=== PATIENT | male | born 1960 | race Caucasian/White ===

== ENCOUNTER → 2016-10-04 | Outpatient (CLI) | payer OTHER ==
[2016-10-09 00:14] LABS: TESTOSTERONE %FREE+WEAKLY BOUN 15.4 % (9.0-46.0); TESTOSTERONE FREE+WEAKLY BOUND 70.2 ng/dL (40.0-250.0)
== END ==
LOC: M LAB 06:17
PROVIDERS: ATTEND Internal Medicine Endocrinology, Diabetes & Metabolism
DX: R53.83 Other fatigue (principal)

== ENCOUNTER → 2016-10-08 | Outpatient (REF) | payer OTHER ==
[2016-10-08 19:02] LABS: BASO % 0.7 % (0.0-1.0); EOS # 0.1 K/mm3 (0.0-0.50); EOS % 1.9 % (0.0-3.0); LARGE UNSTAINED CELL # 0.1 K/mm3 (0.0-0.4); LARGE UNSTAINED CELL % 1.5 % (0.0-4.0); LYMPH # 1.6 K/mm3 (1.5-4.5); LYMPH % 27.4 % (24.0-44.0); MEAN CORPUSCULAR HEMOGLOBIN 31.6 pg (27.0-33.0); MEAN CORPUSCULAR HGB CONC 34.2 g/dl (32.0-36.5); MEAN CORPUSCULAR VOLUME 92.6 fl (80.0-96.0); MONO # 0.3 K/mm3 (0.0-0.8); MONO % 4.8 % (0.0-5.0); NEUTROPHILS # 3.6 K/mm3 (1.8-7.7); NEUTROPHILS % 63.7 % (36.0-66.0); PLATELET COUNT, AUTOMATED 158 k/mm3 (150-450); RED CELL DISTRIBUTION WIDTH 13.2 % (11.5-14.5); WHITE BLOOD COUNT 5.7 K/mm3 (4.0-10.0)
[2016-10-08 19:26] LABS: ERYTHROCYTE SEDIMENTATION RATE 3 mm/hr (0-20)
[2016-10-08 20:19] LABS: ALBUMIN 4.5 GM/DL (3.2-5.2); ALBUMIN/GLOBULIN RATIO 1.88 (1.00-1.93); ALKALINE PHOSPHATASE 69 U/L (45-117); ALT/SGPT 60 U/L (12-78); ANION GAP 9 MEQ/L (8-16); AST/SGOT 36 U/L (15-37); BILIRUBIN,TOTAL 0.5 MG/DL (0.2-1.0); BLOOD UREA NITROGEN 17 MG/DL (7-18); CALCIUM LEVEL 8.9 MG/DL (8.5-10.1); CARBON DIOXIDE LEVEL 24 MEQ/L (21-32); CHLORIDE LEVEL 109 MEQ/L (98-107); CREATININE FOR GFR 0.93 MG/DL (0.70-1.30); GLOMERULAR FILTRATION RATE > 60.0 (>56); GLUCOSE, FASTING 85 MG/DL (70-105); POTASSIUM SERUM 3.7 MEQ/L (3.5-5.1); SODIUM LEVEL 142 MEQ/L (136-145); TOTAL PROTEIN 6.9 GM/DL (6.4-8.2); URIC ACID 5.4 MG/DL (3.5-7.2)
[2016-10-10 11:00] LABS: ALBUMIN 4.79 GM/DL (3.29-5.55); ALBUMIN % 69.4 % (55.8-66.1); GAMMA GLOBULIN % 8.7 % (11.1-18.8)
[2016-10-11 00:06] LABS: Lyme Disease IgG/IgM Antibodie <0.91 ISR (0.00-0.90); Lyme Disease IgM Ab Quantitati <0.80 index (0.00-0.79)
== END ==
LOC: M LABDRAW1 16:48
PROVIDERS: ATTEND Orthopaedic Surgery
DX: M47.896 Other spondylosis, lumbar region (principal)

== ENCOUNTER → 2016-10-16 | Outpatient (CLI) | payer OTHER | LOC: M LAB 06:03 | PROVIDERS: ATTEND Orthopaedic Surgery | DX: M47.896 Other spondylosis, lumbar region (principal) ==

== ENCOUNTER → 2017-07-25 | Outpatient (CLI) | payer OTHER ==
[2017-07-25 07:03] LABS: BASO % 0.9 % (0.0-1.0); EOS # 0.2 10^3/uL (0.0-0.50); EOS % 4.2 % (0.0-3.0); IMMATURE GRANULOCYTE % 0.2 % (0-0); LYMPH # 1.6 10^3/uL (1.5-4.5); LYMPH % 37.8 % (24.0-44.0); MEAN CORPUSCULAR HEMOGLOBIN 31.1 pg (27.0-33.0); MONO # 0.4 10^3/uL (0.0-0.8); MONO % 9.4 % (0.0-5.0); NEUTROPHILS % 47.5 % (36.0-66.0); PLATELET COUNT, AUTOMATED 126 10^3/uL (150-450); RED CELL DISTRIBUTION WIDTH 12.5 % (11.5-14.5); WHITE BLOOD COUNT 4.3 10^3/uL (4.0-10.0)
[2017-07-25 07:37] LABS: ALBUMIN 4.2 GM/DL (3.2-5.2); ALBUMIN/GLOBULIN RATIO 1.68 (1.00-1.93); ALKALINE PHOSPHATASE 70 U/L (45-117); ALT/SGPT 53 U/L (12-78); ANION GAP 6 MEQ/L (8-16); AST/SGOT 29 U/L (7-37); BILIRUBIN,TOTAL 0.7 MG/DL (0.2-1.0); BLOOD UREA NITROGEN 18 MG/DL (7-18); CALCIUM LEVEL 8.8 MG/DL (8.5-10.1); CARBON DIOXIDE LEVEL 28 MEQ/L (21-32); CHLORIDE LEVEL 108 MEQ/L (98-107); CHOLESTEROL LEVEL 170 MG/DL (<200); CREATININE FOR GFR 0.95 MG/DL (0.70-1.30); GLOMERULAR FILTRATION RATE > 60.0 (>56); GLUCOSE, FASTING 93 MG/DL (70-105); POTASSIUM SERUM 4.3 MEQ/L (3.5-5.1); SODIUM LEVEL 142 MEQ/L (136-145); TOTAL PROTEIN 6.7 GM/DL (6.4-8.2); TRIGLYCERIDES LEVEL 166 MG/DL (<150)
== END ==
LOC: M LAB 06:17
PROVIDERS: ATTEND Physician Assistant
DX: D64.9 Anemia, unspecified (principal); E78.2 Mixed hyperlipidemia; G47.30 Sleep apnea, unspecified; R35.1 Nocturia

== ENCOUNTER → 2017-07-25 | Outpatient (REF) | payer OTHER | LOC: M LAB REF 17:34 | PROVIDERS: ATTEND Physician Assistant | DX: R35.1 Nocturia (principal); D64.9 Anemia, unspecified ==

== ENCOUNTER 2018-03-12 08:45 | Day surgery (SDC) | payer OTHER ==
[2018-03-12] MEDS ORDERED: LIDOCAINE 2% INJ 100 MG/5 ML SDV (FOR ANES.) As Ordered (10:05)
[2018-03-12] MEDS ORDERED: PROPOFOL 200 MG/20 ML VIAL As Ordered (10:05)
[2018-03-12] MEDS ORDERED: HYDROCORTISONE 100 MG/2 ML VIAL (J1720) As Ordered (10:05)
[2018-03-12] MEDS: NS 1,000 ML IV (10:45)
== END 2018-03-12 11:10 | disposition home or self-care (01) ==
LOC: M OPP 08:45
DX: K64.2 Third degree hemorrhoids (principal); K62.5 Hemorrhage of anus and rectum; E78.00 Pure hypercholesterolemia, unspecified; G47.30 Sleep apnea, unspecified; M13.89 Other specified arthritis, multiple sites; Z79.899 Other long term (current) drug therapy; Z87.891 Personal history of nicotine dependence; Z80.0 Family history of malignant neoplasm of digestive organs; Z82.49 Family history of ischemic heart disease and other diseases of the circulatory system
CPT/HCPCS: 45378

== ENCOUNTER 2018-04-02 11:15 | Day surgery (SDC) | payer OTHER ==
[2018-04-02] MEDS ORDERED: ROPIvacaine 0.5% 30 ML INJECTION (J2795 PER 1MG) (11:16)
[2018-04-02] MEDS ORDERED: EPINEPHrine INJ 1 MG/ML 1ML AMP (11:16)
[2018-04-02] MEDS ORDERED: dexameTHASONE 10 MG/1 ML VIAL PRES.FREE (J1100) (11:16)
[2018-04-02] MEDS: LR 1,000 ML IV (12:08)
[2018-04-02] MEDS ORDERED: EPINEPHrine 1MG/ML INJ 30ML MD-VIAL As Ordered (12:59)
[2018-04-02] MEDS ORDERED: LIDOCAINE 1% SDV INJ 30 ML VIAL As Ordered (12:59)
[2018-04-02] MEDS ORDERED: LIDOCAINE 2% INJ 100 MG/5 ML SDV (FOR ANES.) As Ordered (13:01)
[2018-04-02] MEDS ORDERED: ROCURONIUM BROMIDE 50 MG/5 ML VIAL As Ordered (13:01)
[2018-04-02] MEDS ORDERED: PROPOFOL 200 MG/20 ML VIAL As Ordered (13:01)
[2018-04-02] MEDS ORDERED: fentaNYL 100 MCG/2 ML INJECTION (J3010) As Ordered ×3 (13:02→15:45)
[2018-04-02] MEDS ORDERED: MIDAZOLAM INJ 2 MG/2 ML VIAL (J2250) As Ordered (13:09)
[2018-04-02] MEDS: fentaNYL 100 MCG/2 ML INJECTION (J3010) IV (13:20)
[2018-04-02] MEDS: MIDAZOLAM INJ 2 MG/2 ML VIAL (J2250) IV (13:20)
[2018-04-02] MEDS ORDERED: dexameTHASONE 4 MG/ML 1ML VIAL (J1100) As Ordered (14:22)
[2018-04-02] MEDS ORDERED: GLYCOPYRROLATE INJ 0.2 MG/ML 2 ML VIAL As Ordered (14:30)
[2018-04-02] MEDS ORDERED: ePHEDrine SULFATE 25 MG/5 ML(5MG/ML) SYRINGE As Ordered (14:31)
[2018-04-02] MEDS: BUPIVACAINE HCL 0.25% 30 ML VIAL As Ordered (16:30)
[2018-04-02] MEDS ORDERED: fentaNYL 100 MCG/2 ML INJECTION (J3010) IV (17:15)
[2018-04-02] MEDS ORDERED: LR 1,000 ML IV ×2 (17:15)
[2018-04-02] MEDS: ONDANSETRON 4MG/2ML VIAL (J2405) IV (18:08)
== END 2018-04-02 20:00 | disposition home or self-care (01) ==
LOC: M SDC 11:15
DX: M75.21 Bicipital tendinitis, right shoulder (principal); M19.011 Primary osteoarthritis, right shoulder; M75.41 Impingement syndrome of right shoulder; E78.00 Pure hypercholesterolemia, unspecified; G47.33 Obstructive sleep apnea (adult) (pediatric); K64.9 Unspecified hemorrhoids; M48.00 Spinal stenosis, site unspecified; R06.83 Snoring; Z91.09 Other allergy status, other than to drugs and biological substances
CPT/HCPCS: 29822

== ENCOUNTER → 2019-05-13 | Outpatient (CLI) | payer OTHER ==
[~2019-05-13] MED LIST: ROSU40TA4 PO
[2019-05-13 07:12] LABS: BASO % 0.9 % (0.0-1.0); EOS # 0.2 10^3/uL (0.0-0.5); EOS % 3.4 % (0.0-3.0); HEMATOCRIT 41.3 % (42.0-52.0); HEMOGLOBIN 14.5 g/dl (13.5-17.5); LYMPH # 1.6 10^3/uL (1.5-5.0); LYMPH % 36.3 % (24.0-44.0); MEAN CORPUSCULAR HEMOGLOBIN 32.4 pg (27.0-33.0); MEAN CORPUSCULAR HGB CONC 35.1 g/dl (32.0-36.5); MEAN CORPUSCULAR VOLUME 92.2 fl (80.0-96.0); MONO # 0.3 10^3/uL (0.0-0.8); MONO % 7.1 % (0.0-5.0); NEUTROPHILS # 2.3 10^3/uL (1.5-8.5); NEUTROPHILS % 52.1 % (36.0-66.0); PLATELET COUNT, AUTOMATED 127 10^3/uL (150-450); RED BLOOD COUNT 4.48 10^6/uL (4.30-6.10); WHITE BLOOD COUNT 4.4 10^3/uL (4.0-10.0)
[2019-05-13 07:40] LABS: ALBUMIN 4.2 GM/DL (3.2-5.2); ALT/SGPT 62 U/L (12-78); BILIRUBIN,TOTAL 0.6 MG/DL (0.2-1.0); BLOOD UREA NITROGEN 16 MG/DL (7-18); CALCIUM LEVEL 8.6 MG/DL (8.5-10.1); CARBON DIOXIDE LEVEL 26 MEQ/L (21-32); CHLORIDE LEVEL 107 MEQ/L (98-107); CHOLESTEROL LEVEL 87 MG/DL (<200); CHOLESTEROL RISK RATIO 2.175 (<5); CREATININE FOR GFR 0.94 MG/DL (0.70-1.30); GLOMERULAR FILTRATION RATE > 60.0 (>56); GLUCOSE, FASTING 88 MG/DL (70-100); HDL CHOLESTEROL 40 MG/DL (>40); LDL CHOLESTEROL 19 MG/DL (<100); NON-HDL-C 47 MG/DL; POTASSIUM SERUM 4.1 MEQ/L (3.5-5.1); PROSTATIC SPECIFIC AG MONITOR 1.15 NG/ML (< 4.00); SODIUM LEVEL 141 MEQ/L (136-145); TOTAL PROTEIN 6.6 GM/DL (6.4-8.2); TRIGLYCERIDES LEVEL 139 MG/DL (<150)
== END ==
LOC: M LAB 06:17
PROVIDERS: ATTEND Physician Assistant
DX: E78.5 Hyperlipidemia, unspecified (principal); R35.1 Nocturia

== ENCOUNTER → 2019-06-24 | Outpatient (CLI) | payer OTHER ==
--- NOTE | 2019-06-24 16:58 | ECGEPIP ---
[facility] Test Date: 2019-06-24 Pat Name: CHERY RAMSAY Department: Room: - Gender: Male Remote Recruiter: ALANNA : 1960 Requested By: Noah Alvarez Order Number: [id number] Reading MD: Fortunato Ramirez Measurements Intervals [place] Rate: 62 P: 11 ND: 178 QRS: 22 QRSD: 92 T: 3 QT: 388 QTc: 394 Interpretive Statements SINUS RHYTHM Within normal limits. No prior ECG available for comparison at the time of interpretation. Electronically Signed on 06-24-2019 16:57:46 EDT by Fortunato Ramirez
== END ==
LOC: M EKG 11:02
PROVIDERS: ATTEND Orthopaedic Surgery
DX: Z01.810 Encounter for preprocedural cardiovascular examination (principal)

== ENCOUNTER → 2020-09-11 | Outpatient (CLI) | payer SELFPAY | LOC: M LABSMTC 09:39 | PROVIDERS: ATTEND Pediatrics | DX: Z20.822 Contact with and (suspected) exposure to COVID-19 (principal) ==

== ENCOUNTER → 2021-01-16 | Outpatient (CLI) | payer OTHER ==
--- NOTE | 2021-01-16 16:19 | REPPI ---
INDICATION: M54.6 PAIN IN THORACIC SPINE COMPARISON: None. TECHNIQUE: AP, lateral, and swimmers views. FINDINGS: Age-related osteopenia suggested. Alignment and kyphosis maintained. No acute fracture/compression injury or subluxation. No obvious overt degenerative changes noted. IMPRESSION: Osteopenia and essentially age-appropriate examination. <Electronically signed by Jewel Wilson > 01/16/21 [id number]
--- NOTE | 2021-01-16 16:22 | REPPI ---
INDICATION: M54.5 LOW BACK PAIN COMPARISON: None. TECHNIQUE: AP, lateral, bilateral oblique, and coned-down views of the lumbar spine. FINDINGS: Alignment and lordosis maintained. Vertebral bodies are intact. No acute fracture/compression injury or subluxation. No obvious spondylolysis or spondylolisthesis.. Moderate multilevel degenerative changes include endplate sclerosis, early marginal osteophytosis, minimal disc space narrowing and mild facet hypertrophy. IMPRESSION: Moderate multilevel degenerative changes. <Electronically signed by Jewel Wilson > 01/16/21 [id number]
--- NOTE | 2021-01-16 16:39 | REPPI ---
INDICATION: M25.552 M25.551 PAIN IN BOTH HIPS COMPARISON: None. TECHNIQUE: AP and frog-lateral views of the right and left hip FINDINGS: Right hip demonstrates including sclerosis to the acetabulum with marginal spurring and mild joint space narrowing. Left hip demonstrates mild increased sclerosis to the acetabulum with marginal spurring and minimal joint space narrowing. IMPRESSION: Mild generalized age-related degenerative changes (right greater than left). <Electronically signed by Jewel Wlison > 01/16/21 [id number]
== END ==
LOC: M PLAIMG 15:44
PROVIDERS: ATTEND Physician Assistant
DX: M85.88 Other specified disorders of bone density and structure, other site (principal); M25.552 Pain in left hip; M25.551 Pain in right hip; M54.5 Low back pain; M54.6 Pain in thoracic spine

== ENCOUNTER → 2021-03-13 | Outpatient (CLI) | payer OTHER ==
--- NOTE | 2021-03-15 00:25 | REPVR ---
PROCEDURE INFORMATION: Exam: MR Lumbar Spine Without Contrast Exam date and time: 03/13/2021 4:18 PM Age: 60 years old Clinical indication: Condition or disease; Stenosis, spinal; Lumbar region; Additional info: Spinal stenosis lumbar region TECHNIQUE: Imaging protocol: Multiplanar magnetic resonance images of the lumbar spine without intravenous contrast. COMPARISON: CR SPINE LS COMPLETE 01/16/2021 4:09 PM FINDINGS: Vertebral body height and AP alignment is preserved. Multilevel disc desiccation with mild disc space narrowing. Negative for discitis/osteomyelitis. Conus medullaris terminates L1. No epidural fluid collection. L1-L2: Mild disc bulge with seao-qn-vtvibfka facet joint arthropathy. There is mild central canal stenosis without significant foraminal stenosis. L2-L3: Feuh-to-cignjxfb disc bulge with moderate bilateral facet joint arthropathy and posterior laxity of ligamentum flavum. There is moderate to severe central canal stenosis and mild bilateral foraminal stenosis. L3-L4: Mild disc bulge with moderate to severe bilateral facet joint arthropathy and posterior laxity of ligamentum flavum. There is severe central canal stenosis and mild bilateral foraminal stenosis. L4-L5: Agkz-ei-zsxeggyx disc bulge with posterior annular tear, left greater than right facet joint arthropathy and posterior laxity of ligamentum flavum. There is yzce-ut-ibdvmnfh central canal stenosis, mild right foraminal stenosis and uhhg-et-fwtmjhkd left foraminal stenosis. L5-S1: Mild disc bulge with issr-fr-zdszmyoe bilateral facet joint arthropathy. No significant central canal stenosis. There is moderate bilateral foraminal stenosis. IMPRESSION: Degenerative findings as above including moderate to severe central canal stenosis at L2-L3 and severe central canal stenosis at L3-L4. There is associated kinking of intrathecal nerve roots indicating functionally significant stenosis. Neuro surgical consultation may be considered. Electronically signed by: Ezekiel Bernard On 03/15/2021 00:24:49 AM
== END ==
LOC: M RAD 15:45
PROVIDERS: ATTEND Physician Assistant
DX: M48.061 Spinal stenosis, lumbar region without neurogenic claudication (principal); M51.26 Other intervertebral disc displacement, lumbar region

== ENCOUNTER → 2021-11-06 | Outpatient (REF) | payer OTHER | LOC: M LAB REF 08:46 | PROVIDERS: ATTEND Surgery | DX: L72.0 Epidermal cyst (principal) ==

== ENCOUNTER → 2023-06-17 | Outpatient (CLI) | payer OTHER | LOC: M PLAIMG 10:47 | PROVIDERS: ATTEND Physician Assistant | DX: R07.89 Other chest pain (principal); R06.02 Shortness of breath ==

== ENCOUNTER → 2023-09-19 | Outpatient (CLI) | payer OTHER ==
[2023-09-19 08:13] LABS: CREATININE FOR GFR 0.98 MG/DL (0.70-1.30); GLOMERULAR FILTRATION RATE > 60.0 (>49)
== END ==
LOC: M LAB 06:36
PROVIDERS: ATTEND Orthopaedic Surgery Orthopaedic Surgery of the Spine
DX: Z00.00 Encounter for general adult medical examination without abnormal findings (principal); M54.50 Low back pain, unspecified

== ENCOUNTER → 2024-03-15 | Outpatient (CLI) | payer OTHER ==
[~2024-03-15] MED LIST changes: +PROHANCE 279.3MG/ML 15ML VIAL ONE; +PROHANCE 279.3MG/ML 5ML VIAL ONE; -ROSU40TA4 PO; +ROSU40TA63 PO
== END ==
LOC: M PLAIMG 07:14
PROVIDERS: ATTEND Neurological Surgery
DX: G95.89 Other specified diseases of spinal cord (principal)
CPT/HCPCS: 72158; A9576

== ENCOUNTER → 2024-07-20 | Outpatient (CLI) | payer OTHER ==
[~2024-07-20] MED LIST changes: -PROHANCE 279.3MG/ML 15ML VIAL ONE; -PROHANCE 279.3MG/ML 5ML VIAL ONE; -ROSU40TA63 PO; +ROSU40TA81 PO
[2024-07-20 11:41] LABS: APPEARANCE, URINE CLEAR (CLEAR); BACTERIA, URINE AUTO NEGATIVE (NEGATIVE); BILIRUBIN, URINE AUTO NEGATIVE (NEGATIVE); BLOOD, URINE BLOOD NEGATIVE (NEGATIVE); COLOR, URINE YELLOW (YELLOW); GLUCOSE, URINE (UA) AUTO NEGATIVE (NEGATIVE); KETONE, URINE AUTO NEGATIVE (NEGATIVE); LEUKOCYTE ESTERASE, URINE AUTO NEGATIVE (NEGATIVE); NITRITE, URINE AUTO NEGATIVE (NEGATIVE); PROTEIN, URINE AUTO NEGATIVE (NEGATIVE); RBC, URINE AUTO 0 /HPF (0-3); SQUAMOUS EPITHELIAL CELL UR AU 0 /HPF (0-6); UROBILINOGEN, URINE AUTO 0.2 mg/dL (0.0-2.0); WBC, URINE AUTO 0 /HPF (0-3)
[2024-07-20 11:42] LABS: HEMATOCRIT 40.7 % (42.0-52.0); HEMOGLOBIN 13.9 g/dl (13.5-17.5); MEAN CORPUSCULAR HEMOGLOBIN 31.4 pg (27.0-33.0); MEAN CORPUSCULAR HGB CONC 34.2 g/dl (32.0-36.5); MEAN CORPUSCULAR VOLUME 91.9 fl (80.0-96.0); PLATELET COUNT, AUTOMATED 118 10^3/uL (150-450); RED BLOOD COUNT 4.43 10^6/uL (4.30-6.10)
[2024-07-20 12:14] LABS: ALBUMIN 4.2 G/DL (3.2-5.2); ALKALINE PHOSPHATASE 59 U/L (40-129); ALT/SGPT 63 U/L (7.0-40); AST/SGOT 37 U/L (<34); BILIRUBIN,TOTAL 0.6 MG/DL (0.3-1.2); BLOOD UREA NITROGEN 22 MG/DL (9-23); CALCIUM LEVEL 9.3 MG/DL (8.3-10.6); CARBON DIOXIDE LEVEL 28 MMOL/L (20-31); CHLORIDE LEVEL 106 MMOL/L (98-107); CHOLESTEROL LEVEL 93 MG/DL (<200); CHOLESTEROL RISK RATIO 2.72 (<5); CREATININE FOR GFR 0.76 MG/DL (0.70-1.30); GLOMERULAR FILTRATION RATE > 60.0 (>49); GLUCOSE, FASTING 93 MG/DL (74-106); HDL CHOLESTEROL 34.1 MG/DL (>40); LDL CHOLESTEROL 38.7 MG/DL (<100); NON-HDL-C 58.9 MG/DL; POTASSIUM SERUM 3.9 MMOL/L (3.5-5.1); PROSTATIC SPECIFIC AG MONITOR 1.67 NG/ML (< 4.00); SODIUM LEVEL 141 MMOL/L (136-145); TOTAL PROTEIN 6.5 G/DL (5.7-8.2); TRIGLYCERIDES LEVEL 101 MG/DL (<150)
[2024-07-20 12:16] LABS: THYROID STIMULATING HORMONE 1.201 uIU/ML (0.55-4.78)
[2024-07-21 06:41] LABS: WHITE BLOOD COUNT 4.6 10^3/uL (4.0-10.0)
== END ==
LOC: M WUC 08:17
PROVIDERS: ATTEND Physician Assistant
DX: Z00.01 Encounter for general adult medical examination with abnormal findings (principal); E78.5 Hyperlipidemia, unspecified; R35.1 Nocturia; M25.512 Pain in left shoulder

== ENCOUNTER → 2024-12-09 | Outpatient (CLI) | payer OTHER | LOC: M PLARAD 07:46 | PROVIDERS: ATTEND Physician Assistant | DX: D33.4 Benign neoplasm of spinal cord (principal) ==

== ENCOUNTER → 2025-07-28 | Outpatient (CLI) | payer MEDICARE, OTHER ==
[2025-07-28 12:50] LABS: PLATELET COUNT, AUTOMATED 131 10^3/uL (150-450)
[2025-07-28 13:02] LABS: APPEARANCE, URINE CLEAR (CLEAR); BACTERIA, URINE AUTO NEGATIVE (NEGATIVE); BILIRUBIN, URINE AUTO NEGATIVE (NEGATIVE); BLOOD, URINE BLOOD NEGATIVE (NEGATIVE); GLUCOSE, URINE (UA) AUTO NEGATIVE (NEGATIVE); KETONE, URINE AUTO NEGATIVE (NEGATIVE); LEUKOCYTE ESTERASE, URINE AUTO NEGATIVE (NEGATIVE); MUCUS, URINE SMALL (NEGATIVE); NITRITE, URINE AUTO NEGATIVE (NEGATIVE); PROTEIN, URINE AUTO NEGATIVE (NEGATIVE); RBC, URINE AUTO 0 /HPF (0-3); SPECIFIC GRAVITY URINE AUTO 1.008 (1.002-1.035); SQUAMOUS EPITHELIAL CELL UR AU 0 /HPF (0-6); UROBILINOGEN, URINE AUTO 0.2 mg/dL (0.0-2.0); WBC, URINE AUTO 0 /HPF (0-3)
[2025-07-28 13:18] LABS: ALT/SGPT 57 U/L (7.0-40); AST/SGOT 43 U/L (<34); CALCIUM LEVEL 9.1 MG/DL (8.3-10.6); CARBON DIOXIDE LEVEL 31 MMOL/L (20-31); CHLORIDE LEVEL 104 MMOL/L (98-107); CHOLESTEROL LEVEL 75 MG/DL (<200); CHOLESTEROL RISK RATIO 2.14 (<5); CREATININE FOR GFR 0.91 MG/DL (0.70-1.30); GLOMERULAR FILTRATION RATE > 90.0 (>49); LDL CHOLESTEROL 24.1 MG/DL (<100); NON-HDL-C 40.1 MG/DL; POTASSIUM SERUM 4.2 MMOL/L (3.5-5.1); PROSTATIC SPECIFIC AG MONITOR 1.46 NG/ML (< 4.00); SODIUM LEVEL 143 MMOL/L (136-145); TRIGLYCERIDES LEVEL 80 MG/DL (<150)
== END ==
LOC: M WUC 08:09
PROVIDERS: ATTEND Physician Assistant
DX: E78.6 Lipoprotein deficiency (principal); R97.20 Elevated prostate specific antigen [PSA]; E07.9 Disorder of thyroid, unspecified